=== PATIENT | male | born 1970 | race African-American/Black ===

== ENCOUNTER 2023-01-28 10:36 | Emergency (ER) | payer OTHER ==
[~2023-01-28] VITALS: Ht 182.9 cm; Wt 86.6 kg
--- NOTE | 2023-01-28 10:45 | NUR ---
[facility]IB [employer] STATED HE SHOWED UP FOR WORK AND WAS NORMAL AND HOUR LATER HE BECAME ALTERED AND ACTING ERRATIC. LKW WAS 0900 PER [employer]. PT ATTACHED TO MONITOR, VITALS ARE WITHIN NORMAL LIMITS. BLOOD GLUCOSE WAS 20, MD AWARE, HAS HX OF DIABETES.
[2023-01-28] MEDS ORDERED: DEXTROSE 50%-WATER 50 ML DISP.SYRIN ONE (10:48)
[2023-01-28] MEDS ORDERED: IV NS 0.9% 1,000 ML BAG IV ONE (11:00)
[2023-01-28] MEDS ORDERED: DEXTROSE 50%-WATER 50 ML DISP.SYRIN IVP ONE (11:00)
--- NOTE | 2023-01-28 11:00 | NUR ---
BLOOD GLUCOSE, 139, DR BOUDREAUX AWARE.
--- NOTE | 2023-01-28 11:01 | NUR ---
THE PATIENT IS ALERT AND ORIENTED X3 AT THIS TIME. IN ROOM AIR AND DENIES SOB. RESPIRATION REGULAR AND UNLABORED. WILL CONTINUE TO MONITOR THE PATIENT.
--- NOTE | 2023-01-28 11:08 | NUR ---
AMIR [phone] [employer].
--- NOTE | 2023-01-28 11:08 | NUR ---
PT TAKEN TO CT VIA JOE[facility]
[2023-01-28 11:24] LABS: CALCIUM, SERUM 8.7 mg/dL (8.5-10.1); CARBON DIOXIDE 22 mmol/L (21-32); CHLORIDE 109 mmol/L (98-107); CREATININE 2.2 mg/dL (0.6-1.3); GLUCOSE 153 mg/dL (74-106); POTASSIUM 5.1 mmol/L (3.5-5.1); SERUM AMMONIA 12 umol/L (11-32); SODIUM SERUM 140 mmol/L (136-145); UREA NITROGEN, BLOOD 23 mg/dL (7-18)
[2023-01-28 11:37] LABS: THYROID STIMULATING HORMONE 1.534 uIU/mL (0.358-3.74)
[2023-01-28 11:38] LABS: ALANINE AMINOTRANSFERASE 32 U/L (12-78); ALKALINE PHOSPHATASE 75 U/L (46-116); ASPARTATE AMINOTRANSFERASE 25 U/L (15-37); BILIRUBIN,DIRECT 0.1 mg/dL (0.0-0.2); BILIRUBIN,TOTAL 0.4 mg/dL (0.2-1.0); TOTAL PROTEIN, SERUM 6.8 g/dL (6.4-8.2)
[2023-01-28 11:43] LABS: ALCOHOL, BLOOD < 3 mg/dL (0-10)
[2023-01-28 11:53] LABS: BASOPHILS % (AUTO) 0.4 % (0.0-2.0); EOSINOPHILS % (AUTO) 0.2 % (0.0-6.0); HEMATOCRIT 29 % (39-51); HEMOGLOBIN 9.5 g/dL (13.5-17.5); LYMPHOCYTES # (AUTO) 1.2 K/uL (0.8-4.8); LYMPHOCYTES % (AUTO) 12.9 % (20.0-44.0); MEAN CORPUSCULAR HGB CONC 32 g/dl (31.0-36.0); MEAN CORPUSCULAR VOLUME 94 fL (80-96); MONOCYTES # (AUTO) 0.6 K/uL (0.1-1.30); MONOCYTES % (AUTO) 6.1 % (2.0-12.0); NEUTROPHILS # (AUTO) 7.6 K/uL (1.8-8.9); NEUTROPHILS % (AUTO) 80.4 % (43.0-81.0); PLATELET COUNT (AUTO) 405 K/uL (150-450); RED BLOOD CELL COUNT(AUTO) 3.14 MIL/uL (4.5-6.0); WHITE BLOOD COUNT (AUTO) 9.4 K/uL (4.3-11.0)
[2023-01-28 16:27] VITALS: BP 180/85
== END 2023-01-28 12:30 | disposition home or self-care (01) ==
LOC: ER 10:38 → EDBD 10:38 → ER 12:30
DX: E11.649 Type 2 diabetes mellitus with hypoglycemia without coma (principal); D64.9 Anemia, unspecified; E11.22 Type 2 diabetes mellitus with diabetic chronic kidney disease; I12.9 Hypertensive chronic kidney disease with stage 1 through stage 4 chronic kidney disease, or unspecified chronic kidney disease; N18.9 Chronic kidney disease, unspecified
CPT/HCPCS: 99291; 96374; 96361; 93005; 71045; 70450; 82140; 85025; 80048; 87040 ×2; 83605; 80076; 83036; 36415; 84443; 84484; 82962; 80143; 80320; J7030; A4223; G0480